=== PATIENT | female | born 1945 | race Caucasian/White ===

== ENCOUNTER 2024-04-21 07:06 | Observation (INO) ==
--- NOTE | 2024-03-20 10:15 | PAT Medication Instructions ---
Medication Instructions Date of Service March 20, 2024 Home Medications ergocalciferol (vitamin D2) 1,250 mcg (50,000 unit) capsule (Vitamin D2) 1,250 mcg PO UD meloxicam 7.5 mg tablet 7.5 mg PO QAM metoprolol succinate 50 mg tablet,extended release 24 hr 50 mg PO QAM ASK your surgeon for instructions meloxicam 7.5 mg tablet 7.5 mg PO QAM DO NOT take the morning of surgery ergocalciferol (vitamin D2) 1,250 mcg (50,000 unit) capsule (Vitamin D2) 1,250 mcg PO UD Take morning of surgery With a small sip of water, OTHERWISE NOTHING TO EAT OR DRINK AFTER MIDNIGHT: metoprolol succinate 50 mg tablet,extended release 24 hr 50 mg PO QAM Other Notes If you have any questions please call us at [phone] or [phone] or [phone] or [phone]
--- NOTE | 2024-03-27 11:16 | Anesthesiology Consultation ---
Date of Service March 27, 2024 Assessment & Plan (1) Encounter for pre-operative examination: - Infectious disease screening: Per assessment on 03/27/24: No known recent infectious disease contacts or current infectious disease symptoms. - Patient acceptable risk for surgery pending surgeon-ordered PCP preop evaluation (Kaleigh BARRIGA, appt 03/24). Chart Review Chart Review: Patient seen in Pre Admission Testing Teaching & Discussion Pre-Anesthesia Teaching/Discussion Notes: Instructed NPO after midnight before surgery,except medications with 15 cc of water. Medication instructions provided according to the PAT guidelines. History Surgery Operation Date: 04/21/24 07:45 Proposed Procedures p L3-L4 Decompression - Lucien Albright, Height/Weight Height: 5 ft 1 in Weight: 55.6 kg Allergies Allergy/AdvReac Type Severity Reaction Status Date / Time Penicillins Allergy Unknown Hives Verified 03/20/24 09:03 Medications Home Medications Medication Instructions Recorded Confirmed Last Taken ergocalciferol (vitamin D2) 1,250 1,250 mcg PO UD 03/20/24 03/20/24 Unknown mcg (50,000 unit) capsule (Vitamin D2) meloxicam 7.5 mg tablet 7.5 mg PO QAM 03/20/24 03/20/24 Unknown metoprolol succinate 50 mg 50 mg PO QAM 03/20/24 03/20/24 Unknown tablet,extended release 24 hr Past Medical History Medical History Arthritis History of high cholesterol [place] (hard of hearing) HTN (hypertension) Spinal stenosis Exercise / Class Metabolic Activity III < 4 Walking/Shop/Light housework (one FS: No CP, mild SOB) Past Surgical History Surgical History History of colonoscopy History of laparoscopy Past Anesthesia History No Hx of Anesthesia Complications and No Family Hx of Anesthesia Complications History of PONV No Hx of PONV and No Hx of Motion Sickness Social History Smoking Status: Never smoker Do You Dip or Chew Tobacco: No Hx Alcohol Use: No Hx Substance Use: No substance use type: does not use Review of Systems Patient denies chest pain, shortness of breath, fever, chills, cough, wheezing. Physical Exam Vital Signs BP 153/78 P 70 TEMP 98.2 SP02 96%RA RESP 16 Physical Full cervical extension range of motion. Full TMJ range of motion. TMD 3 finger breaths Mallampati Score I Dentition: intact, upper front caps Lungs: clear throughout to auscultation Cardiac: regular rate and rhythm, no murmurs noted Spine: normal Carotid arteries: negative bruit Extremities: no LE edema Lab Results Anesthesia Preop Results Results Anesthesia Widget: WBC 6.08 K/ul (4.8-10.8) 03/27/24 Hgb 11.8 g/dl (12.0-16.0) L 03/27/24 Hct 36.1 % (37.0-47.0) L 03/27/24 Plt 259 K/uL (130-400) 03/27/24 Na 137 mmol/L (136-145) 03/27/24 K 4.4 mmol/L (3.5-5.1) 03/27/24 Cl 103 mmol/L (98-107) 03/27/24 CO2 28 mmol/L (21-32) 03/27/24 BUN 19 mg/dl (6-23) 03/27/24 Creat 0.75 mg/dl (0.6-1.2) 03/27/24 Glucose Level 76 mg/dl (70-99(Fasting)) 03/27/24 PT 10.7 Seconds (9.0-12.0) 03/27/24 PTT 25 Seconds (21-31) 03/27/24 INR 1.0 (0.9-1.1) 03/27/24 Urine Color Yellow 03/27/24 Urine Appearance Clear (Clear) 03/27/24 Urine pH 5.0 (4.5-7.5) 03/27/24 Urine Specific Bostic 1.015 (1.000-1.030) 03/27/24 Urine Protein Negative (Negative) 03/27/24 Urine Glucose (UA) Negative (Negative) 03/27/24 Urine Ketones Negative (Negative) 03/27/24 Urine Blood Negative (Negative) 03/27/24 Urine Nitrite Negative (Negative) 03/27/24 Urine Bilirubin Negative (Negative) 03/27/24 Urine Urobilinogen Negative (Negative) 03/27/24 Urine Leukocyte Esterase 1+ (Negative) H 03/27/24 Urine WBC (Auto) 6-10 /hpf (0-5) H 03/27/24 Urine RBC (Auto) 0-2 /hpf (0-2) 03/27/24 Urine Hyaline Casts (Auto) 0-2 /lpf (0-2) 03/27/24 Urine Epithelial Cells (Auto) 0-2 /hpf (0-2) 03/27/24 Urine Bacteria (Auto) None Seen (None Seen) 03/27/24 Blood Type A Negative 03/27/24 Antibody Screen NEGATIVE 03/27/24 Testing Electrocardiogram Date: 03/27/24 NSR at 69bpm. "Normal ECG" Chest X-Ray Date: 03/27/24 FINDINGS: No lines and tubes are seen. Calcified aortic knob is seen. The lungs are clear. No evidence of pleural effusion or pneumothorax. IMPRESSION: No acute chest disease.
[2024-04-21] MEDS ORDERED: ePHEDrine sulfate 50 MG/ML AMP IV PRN (08:09)
[2024-04-21] MEDS ORDERED: PROMETHAZINE HCL 6.25 MG in SODIUM CHLORIDE 0.9% 50 ML IV PRN (08:09)
[2024-04-21] MEDS ORDERED: HYDROmorphone INJ 1 MG/ML SYRINGE IV PRN ×2 (08:09→11:40)
[2024-04-21] MEDS ORDERED: ATROPINE SULFATE 0.1 MG/ML 10ML SYR IV PRN (08:09)
[2024-04-21] MEDS ORDERED: HYDROmorphone INJ 2 MG/ML SYR/VIAL ONE (08:12)
[2024-04-21] MEDS ORDERED: MIDAZOLAM HCL 1 MG/ML 2ML VIAL ONE (08:12)
[2024-04-21] MEDS ORDERED: SODIUM CHLORIDE 0.9% PF INJ 10 ML VIAL ONE (08:13)
[2024-04-21] MEDS ORDERED: PROPOFOL IV EMULSION 10 MG/ML 20 ML VIAL IV ONE (08:13)
[2024-04-21] MEDS ORDERED: ROCURONIUM BROMIDE 10 MG/ML 5 ML VIAL IV ONE ×6 (08:13→09:47)
[2024-04-21] MEDS ORDERED: GLYCOPYRROLATE 0.2 MG/ML VIAL ONE (08:13)
[2024-04-21] MEDS ORDERED: DEXAMETHASONE SOD INJ 4 MG/ML VIAL ONE (08:13)
[2024-04-21] MEDS ORDERED: ONDANSETRON INJ 2 MG/ML 2 ML VIAL ONE (08:13)
[2024-04-21] MEDS ORDERED: LIDOCAINE 2% 2 ML VIAL/AMP(20MG/ML) INFIL ONE (08:13)
[2024-04-21] MEDS: VANCOMYCIN HCL 1,000 MG/270 ML BAG IV SCH (08:18)
[2024-04-21] MEDS: GABAPENTIN 300 MG CAP PO SCH (08:19)
[2024-04-21] MEDS: LR 15ML/HR IV SCH (08:19)
[2024-04-21] MEDS: ACETAMINOPHEN 500 MG TAB PO SCH (08:19)
[2024-04-21] MEDS: CeleBREX 200 MG CAP PO SCH (08:20)
[2024-04-21] MEDS ORDERED: SUGAMMADEX SODIUM 200 MG/2 ML VIAL IV ONE (08:30)
--- NOTE | 2024-04-21 08:39 | History & Physical Bridge Note ---
Date of Service April 21, 2024 History & Physical Bridge Note I have examined the patient, reviewed the History & Physical and in the interval since the performance of the History & Physical I have noted the following changes of clinical significance: no changes noted
--- NOTE | 2024-04-21 08:39 | History & Physical Report ---
Date of Service April 21, 2024 Assessment & Plan (1) Neurogenic claudication due to lumbar spinal stenosis: Plan: L3-L4 decompression History of Present Illness Chief Complaint: Back and bilateral leg pain Primary Care Provider: LINUS Beckett This is an 79-year-old female who presents with chronic persistent back and leg pain and failing course of nonoperative care is here for surgical invention. Allergies Allergy/AdvReac Type Severity Reaction Status Date / Time Penicillins Allergy Unknown Hives Verified 03/20/24 09:03 Home Medications Medication Instructions Recorded Confirmed Type ergocalciferol (vitamin D2) 1,250 1,250 mcg PO UD 03/20/24 04/21/24 History mcg (50,000 unit) capsule (Vitamin D2) meloxicam 7.5 mg tablet 7.5 mg PO QAM 03/20/24 04/21/24 History metoprolol succinate 50 mg 50 mg PO QAM 03/20/24 04/21/24 History tablet,extended release 24 hr Past Med/Surg History Problem List (Updated 04/21/24 @ 08:38 by Lucien Albright DO) Neurogenic claudication due to lumbar spinal stenosis Encounter for pre-operative examination Medical History Arthritis History of high cholesterol [place] (hard of hearing) HTN (hypertension) Spinal stenosis Surgical History History of colonoscopy History of laparoscopy Social History Smoking Status: Never smoker Do You Dip or Chew Tobacco: No; Hx Alcohol Use: No Hx Substance Use: No Preferred Language: Iraqi Communication Ability: Effective Siding Applicator Required: No Beliefs That Will Affect Care: Adventism Adventism Beliefs: Rastafari Current Living Situation: Spouse and Family Current Living Situation Comment: son is with us Feels Safe at Home: Yes Assistive Devices: Cane, Glasses, Hearing Aid - Bilateral and Walker Physical Exam Physical Exam: Patient is alert and oriented heart regular in rhythm Lungs clear Results & Data Results & Data Vital Signs (Past 12 Hours) Vital Signs Temp Pulse Resp BP Pulse Ox O2 Del Method 04/21/24 07:35 36.6 C 71 20 180/93 H 100 Room Air
[2024-04-21] MEDS: LR 60ML/HR IV SCH (09:03)
[2024-04-21] MEDS ORDERED: ePHEDrine sulfate 50 MG/5 ML SYR ONE (09:25)
[2024-04-21] MEDS: BUPIVACAINE/EPINEPHRINE 0.25% 1:200,000 30 ML VIAL ONE (09:50)
[2024-04-21] MEDS: ceFAZolin 330 MG/ML 1 GM VIAL ONE (09:54)
--- NOTE | 2024-04-21 10:12 | Operative Report ---
Post Operative Report Pre & Post Diagnosis Operation Date: 04/21/24 09:05 Pre-Op Diagnosis: Neurogenic claudication due to lumbar spinal stenosis. Post-Op Diagnosis: Neurogenic claudication due to lumbar spinal stenosis. I identified the patient and participated in the time-out.: Yes Procedure Operation Date: 04/21/24 09:05 Actual Procedures #1 lumbar decompression bilateral medial facetectomies L3-L4. #2 excision of extradural mass L3-L4. #3 posterior spinal fusion L3-L4. #4 placement infuse collagen sponge combined with Koros in the posterior lateral gutters L3-L4. #5 application of versa wrap over the exposed dura. Surgeon Lucien Albright, Sba Underwriter Gisel Sanchez Estimated Blood Loss 50 Findings Consistent with Post-Op Diagnosis Specimens None Indications This is an 7-year-old female who presents with chronic persistent back and bilateral leg pain and failing course of nonoperative care is here for surgical invention. Description of Procedure Patient was met with identified informed consent obtained. Patient was then taken to the operative suite underwent intubation placed in the prone position on the Perry table on top of the Baltazar frame. All bony prominences well- padded eyes inspected to ensure no external pressure placed upon them. This point lumbar spine was prepped and draped in the normal sterile fashion. The assistance of fluoroscopy identified the L3-L4 disc space and sharp dissection with the assistance of Bovie cautery from down to and exposing the lamina of L3- L4. Then performed a midline decompression with removal of L4 lamina. I excised the facet cyst of L3-L4 with direct adherence to the associated dura. Then performed bilateral medial facetectomies to address all subarticular disease. In light of the extent of the decompression I did elect to perform a in situ posterior lateral fusion L3-L4. I extended the dissection to the transverse processes of L3-L4 and burred them to subcortical bleeding bone. Infuse collagen sponge combined with Koros was then placed in the posterior gutters. Versa wrap placed over the exposed dura. 10 round GLEN drain inserted. The incision was then closed with 1 Vicryl the fascia 2-0 Vicryl subcutaneously and 4 Monocryl for final skin closure. Steri-Strips sterile dressing placed. Patient waken taken PACU stable condition. Please note Gisel Sanchez was present at the entire procedure and all the patient positioning complex portion of the surgery and final skin closure. Im ordering 20 grams of Triple [place] Collagen Powder ([id number] [id number]) to treat an incision wound that was caused by a spine procedure. The incision is approximately 2 cm(W) x 4 cm(L) into the joint (D) in size and is a full thickness wound. Triple [place] collagen comes in 1 gram packets so 20 packets were ordered. Given the size of the wound, with light to moderate exudate I chose to order a 20 day supply. The patient will be provided instructions for proper application of the collagen wound kit. The patient will be asked to apply the collagen powder daily and then cover it with sterile dressings dispensed. Collagen was selected as I expect the collagen to attract monocytes and fibroblasts, act as a sacrificial substrate for MMPs, and ultimately proved a matrix for tissue and vessel growth. The collagen will act as a primary dressing in this scenario. It is medically necessary for proper healing of these wounds to improve bioavailability and contact with each wound surface, this is also to help prevent infection of wounds and promote healing ultimately leading to a better healing outcome and limit the risk of infection. I attest to the content of the Intraoperative Record and any orders documented therein. Any exceptions are noted below.
[2024-04-21] MEDS ORDERED: FLUMAZENIL 0.1 MG/1 ML 10 ML VIAL IV ONE (10:20)
[2024-04-21] MEDS ORDERED: NALOXONE HCL 0.4 MG/1 ML VIAL/CARP ONE (10:25)
--- NOTE | 2024-04-21 11:05 | Fluoroscopy Report ---
FL spine 1V any level CLINICAL HISTORY: L3-L4 DECOMPRESSION COMPARISON STUDY: None. FLUOROSCOPY TIME: 7 seconds. Ka,r: 4.20 mGy FLUOROSCOPIC IMAGES: 1 FINDINGS: Single lateral fluoroscopic image demonstrates surgical retractors and a surgical instrumen t directed toward the posterior elements at the L4 level. IMPRESSION: Single lateral fluoroscopic image demonstrating surgical instruments directed toward the posterior elements at the L4 level. ACT 112: Negative or not required by law. Electronically signed by: Norm Gillespie M.D. 04/21/2024 11:04 AM
[2024-04-21] MEDS: FLOSEAL HEMOSTATIC MATRIX 10ML TOP ONE ×2 (11:38→11:39)
[2024-04-21] MEDS ORDERED: LORazepam 2 MG/1 ML VIAL IV PRN (11:40)
[2024-04-21] MEDS ORDERED: NALOXONE HCL 0.4 MG/1 ML VIAL/CARP IV PRN (11:40)
[2024-04-21] MEDS ORDERED: bisacodyL 10 MG SUPP PR PRN (11:40)
[2024-04-21] MEDS ORDERED: DO NOT ADMINISTER FLU VACCINE PRN (11:40)
[2024-04-21] MEDS ORDERED: diphenhydrAMINE Capsule 25 MG CAP PO PRN (11:40)
[2024-04-21] MEDS ORDERED: HYDROmorphone INJ 0.5 MG/0.5 ML SYR IV PRN (11:40)
[2024-04-21] MEDS ORDERED: FAMOTIDINE 20 MG TAB PO PRN (11:40)
[2024-04-21] MEDS ORDERED: DO NOT ADMINISTER PNEUMOCOCCAL VACCINE PRN (11:40)
[2024-04-21] MEDS ORDERED: ALUMINUM/MAGNESIUM SUSP 30 ML UDC PO PRN (11:40)
[2024-04-21] MEDS ORDERED: METOCLOPRAMIDE HCL INJ 5 MG/ML 2 ML VIAL IV PRN (11:40)
[2024-04-21] MEDS ORDERED: PROMETHAZINE 12.5 MG/50.5 ML BAG IV PRN (11:40)
[2024-04-21] MEDS ORDERED: LORazepam 0.5 MG TAB PO PRN (11:40)
[2024-04-21] MEDS ORDERED: hydrOXYzine HCl 25 MG TAB PO PRN (11:40)
[2024-04-21] MEDS ORDERED: ONDANSETRON 4 MG OD TAB PO PRN (11:40)
[2024-04-21] MEDS ORDERED: MAGNESIUM HYDROXIDE SUSP 30 ML UDC PO PRN (11:40)
[2024-04-21] MEDS ORDERED: SOD PHOSPHATE/SOD BIPHOSPHATE ENEMA 132 ML BTL PR PRN (11:40)
--- NOTE | 2024-04-21 12:17 | Hospitalist Consultation ---
Date of Consultation April 21, 2024 Assessment & Plan (1) Status post lumbar spine surgery for decompression of spinal cord: S/p L3-L4 lumbar spine decompression with Dr. Albright on 04/21 Perioperative antibiotics, pain control, fluid management, and DVT PPx per the primary team Postop spine x-ray revealed surgical instruments directed toward posterior elements of L4 Patient reports no new complaints postop, and reports that her pain is well- managed at time of consult Agree with a.m. CBC, BMP; we will follow (2) HTN (hypertension): Agree with restarting metoprolol succinate on the morning of 04/22; okay to continue beta-blockers perioperatively pending AM BP (3) Arthritis: Okay to hold meloxicam perioperatively Plan Agree with current medical management. Disposition: MedSurg Clear liquid diet for now and advance as tolerated VTE PPx: SCD/teds Thank you for allowing us to precipitate in the care of this patient, please reach out with any questions or concerns; we will continue to follow. Supervising Physician Co-Signing Physician Notes I personally saw and examined the patient. I independently reviewed the labs, imaging, problem list, medication list, past medical history and family history. I verified all campos points and agree with Mina Martinez PA-C with the following exceptions and/or additions: 79 year old female POD#0 lumbar spinal decompression. No acute concerns or questions from the patient. O/E HS RRR, no murmurs, Chest CTAB, Abdo SNT A/P s/p lumbar spinal surgery - VTE / pain / bowel management per primary ortho spine team HTN - continue metoprolol succinate History of Present Illness Reason for Consultation: Medical management Requesting Physician: Lucien Albright DO Attending Physician: Lucien Albright DO History of Present Illness Lidia is a pleasant 79-year-old female with PMH of neurogenic claudication due to lumbar spinal stenosis. She presented on 04/21 for an L3-L4 decompression with Dr. Lucien Albright. Per review of operative report, EBL was listed as 50 cc, and findings were consistent with postop diagnosis. Per review of patient's vitals postop, vitals been stable. At time of consult, patient reports no new complaints. She reports the pain in her lower back is 0/10 at present. No numbness or tingling going down the legs. No saddle anesthesia. She reports that she is tired from her procedure, but overall well. She reports she has been drinking well since the procedure, but has not tried eating yet. She denies using supplemental oxygen at baseline or CPAP at night. She has not been up yet to use the bathroom since her procedure. She does report that she is able to sit up in the bed without pain in her lower back. She denies smoking, tobacco use, recent alcohol use. Patient did not take her regular morning medicines today (which is just metoprolol and meloxicam). Patient's vitals are stable at time of consult. ROS: Patient endorses fatigue. Patient denies fever, chills, night sweats, dizziness/lightheadedness, chest pain, pleuritic CP, SOB, cough, abdominal pain, N/V, lower back pain, saddle anesthesia, or numbness or tingling in the legs. Allergies Allergy/AdvReac Type Severity Reaction Status Date / Time Penicillins Allergy Unknown Hives Verified 03/20/24 09:03 Home Medications Medication Instructions Recorded Confirmed Type ergocalciferol (vitamin D2) 1,250 1,250 mcg PO UD 03/20/24 04/21/24 History mcg (50,000 unit) capsule (Vitamin D2) meloxicam 7.5 mg tablet 7.5 mg PO QAM 03/20/24 04/21/24 History metoprolol succinate 50 mg 50 mg PO QAM 03/20/24 04/21/24 History tablet,extended release 24 hr oxycodone 5 mg tablet 5 mg PO Q6H PRN pain #30 tabs 04/22/24 Rx tramadol 50 mg tablet 50 mg PO Q6H PRN pain, moderate 04/22/24 Rx #30 tabs Patient History Medical History Arthritis History of high cholesterol [place] (hard of hearing) HTN (hypertension) Spinal stenosis Surgical History History of colonoscopy History of laparoscopy Social History Smoking Status: Never smoker Do You Dip or Chew Tobacco: No; Hx Alcohol Use: No Hx Substance Use: No Preferred Language: Italian Communication Ability: Effective Business Manager Required: No Beliefs That Will Affect Care: Hindu Hindu Beliefs: Latter-Day Current Living Situation: Spouse and Family Current Living Situation Comment: son is with us Feels Safe at Home: Yes Assistive Devices: Cane, Glasses, Hearing Aid - Bilateral and Walker Review of Systems Review of Systems: See HPI above Physical Exam Physical Exam: General: no acute distress; lethargic; pleasant affect; patient's (Earl) at bedside; patient is non-toxic appearing; cooperative; SpO2 95% on RA HEENT: normocephalic, atraumatic; no scleral icterus; PERRLA; vision and hearing intact Neck: supple; trachea midline Skin: warm, dry without signs of tenting; no cyanosis; no rashes, bruising, lesions, or erythema noted CV: chest wall NTP; RRR; S1/S2 normal; no murmurs/rubs/gallops; pulses intact and symmetric at radial, DP, and PT Lungs: no acute respiratory distress; symmetrical chest wall expansion; clear br eath sounds across all lung beltran w/o adventitious sounds; no wheezing ABD: Soft, NTP; BS present; no rebound/guarding; no distention Back: Upper spine NTP; lower spine surgical site dressing without signs of drainage or infection; NTP around the surgical site MSK: no tics or fasciculations; no edema noted in the LEs b/l, nonerythematous; patient demonstrates ability to wiggle toes/plantarflex/dorsiflex bilaterally, and lift legs from the bed with 5/5 strength; pulses are intact at DP/PT Neuro: A&Ox3; normal mood and affect; fluent speech; no focal deficits; sensation intact and symmetric in the lower extremities bilaterally assessed via light touch Results & Data Results & Data Vital Signs (Past 12 Hours) Vital Signs Temp Pulse Pulse Resp BP Pulse Ox O2 Del Method 04/21/24 11:46 36.3 C L 68 16 114/70 95 Room Air 04/21/24 11:35 64 14 122/62 98 Nasal Cannula 04/21/24 11:25 64 17 120/65 97 Nasal Cannula 04/21/24 11:15 66 19 118/62 98 Nasal Cannula 04/21/24 11:05 36.4 C L 66 13 122/63 96 Room Air 04/21/24 10:55 67 14 131/72 99 Oxymask 04/21/24 10:45 70 16 120/68 99 Oxymask 04/21/24 10:36 36.3 C L 70 15 116/81 99 Oxymask 04/21/24 07:35 36.6 C 71 20 180/93 H 100 Room Air O2 Flow Rate 04/21/24 11:46 04/21/24 11:35 2 04/21/24 11:25 2 04/21/24 11:15 2 04/21/24 11:05 04/21/24 10:55 3 04/21/24 10:45 9 04/21/24 10:36 9 04/21/24 07:35 Diagnostic Findings Spine X-Ray 04/21/24 09:05 FL spine 1V any level CLINICAL HISTORY: L3-L4 DECOMPRESSION COMPARISON STUDY: None. FLUOROSCOPY TIME: 7 seconds. Ka,r: 4.20 mGy FLUOROSCOPIC IMAGES: 1 FINDINGS: Single lateral fluoroscopic image demonstrates surgical retractors and a surgical instrument directed toward the posterior elements at the L4 level. IMPRESSION: Single lateral fluoroscopic image demonstrating surgical instruments directed toward the posterior elements at the L4 level. ACT 112: Negative or not required by law. Electronically signed by: Norm Gillespie M.D. 04/21/2024 11:04 AM PG Care Time/CCT Total # of Minutes Spent Total Time Spent with Patient: Total time spent is greater than 50% in coordination of care (as documented) at patient's floor/unit and/or counseling patient: Coding [place] [address] IN/OBS CONSULT LVL 3,45M Patient Type Established Medical Decision Making Low Complexity Diagnoses Status post lumbar spine surgery for decompression of spinal cord Z98.890 HTN (hypertension) I10 Arthritis M19.90
[2024-04-21] MEDS: LACTATED RINGER'S 1,000 ML IV SCH (12:55)
--- NOTE | 2024-04-21 14:35 | Anesthesiology Progress Note ---
Date of Service April 21, 2024 Anesthesia Post Procedure Vital Signs Vital Signs: Temp Pulse Pulse Resp BP Pulse Ox O2 Del Method 04/21/24 13:42 36.2 C L 64 16 106/66 98 Nasal Cannula 04/21/24 12:52 36.3 C L 68 16 111/68 93 Room Air 04/21/24 12:21 65 16 110/66 95 Room Air 04/21/24 11:46 36.3 C L 68 16 114/70 95 Room Air 04/21/24 11:35 64 14 122/62 98 Nasal Cannula 04/21/24 11:25 64 17 120/65 97 Nasal Cannula 04/21/24 11:15 66 19 118/62 98 Nasal Cannula 04/21/24 11:05 36.4 C L 66 13 122/63 96 Room Air 04/21/24 10:55 67 14 131/72 99 Oxymask 04/21/24 10:45 70 16 120/68 99 Oxymask 04/21/24 10:36 36.3 C L 70 15 116/81 99 Oxymask 04/21/24 07:35 36.6 C 71 20 180/93 H 100 Room Air O2 Flow Rate 04/21/24 13:42 2 04/21/24 12:52 04/21/24 12:21 04/21/24 11:46 04/21/24 11:35 2 04/21/24 11:25 2 04/21/24 11:15 2 04/21/24 11:05 04/21/24 10:55 3 04/21/24 10:45 9 04/21/24 10:36 9 04/21/24 07:35 Transfer of Care Handoff Completed per policy Notes Mental Status: alert / awake / arousable and participated in evaluation Nausea / Vomiting: adequately controlled Pain: adequately controlled Airway Patency, RR, SpO2: stable & adequate BP & HR: stable & adequate Hydration State: stable & adequate Anesthetic Complications: no major complications apparent and Pt Satisfied with anesthetic care
[2024-04-21] MEDS: oxyCODONE HCL IR 5 MG TAB (IMMEDIATE RELEASE) PO PRN (14:54)
[2024-04-21] MEDS: CLINDAMYCIN/D5W 600 MG/50 ML BAG IV SCH (16:05)
[2024-04-21] MEDS: ONDANSETRON INJ 2 MG/ML 2 ML VIAL IV PRN (17:09)
[2024-04-21] MEDS: ACETAMINOPHEN 1,000 MG/100 ML VIAL IV PRN (17:25)
[2024-04-21] MEDS: DOCUSATE SODIUM/SENNA 50/8.6MG TAB PO SCH (20:20)
[2024-04-22] MEDS: POLYETHYLENE (MIRALAX) 17 GM PACK PO SCH (05:56)
[2024-04-22 06:28] LABS: Basophils # (auto) 0.02 K/uL (0.00-0.20); Basophils % (auto) 0.2 %; Eosinophils # (auto) 0.02 K/uL (0.00-0.50); Eosinophils % (auto) 0.2 %; Hematocrit (blood only) 32.1 % (37.0-47.0); Hemoglobin 10.6 g/dl (12.0-16.0); Immature Granulocytes # (auto) 0.05 K/uL (0.01-0.20); Immature Granulocytes % (auto) 0.5 %; Lymphocytes # (auto) 1.51 K/uL (1.20-3.40); Lymphocytes % (auto) 14.4 %; Mean Corpuscular Hemoglobin 30.9 pg (25.0-34.0); Mean Corpuscular Volume 93.6 fL (80.0-100.0); Mean Platelet Volume 11.4 fL (9.4-12.4); Monocytes # (auto) 0.81 K/uL (0.11-0.59); Monocytes % (auto) 7.7 %; Neutrophils # (auto) 8.07 K/uL (1.40-6.50); Platelet Count 218 K/uL (130-400); RDW Coefficient of Variation 13.2 % (11.5-14.5); Red Blood Count 3.43 M/uL (4.20-5.40); White Blood Count 10.48 K/ul (4.8-10.8)
[2024-04-22 07:03] LABS: BUN Creatinine Ratio 21.3 (10-20); Calcium 9.1 mg/dl (8.6-10.3); Creatinine Clr Calc Pharmacy 42.3 ml/min; Potassium 4.8 mmol/L (3.5-5.1)
[2024-04-22] MEDS: dexAMETHasone 6 MG in SYRINGE 0 ML IV SCH (07:33)
--- NOTE | 2024-04-22 08:41 | Orthopedic Progress Note ---
Date of Service April 22, 2024 Assessment & Plan (1) Neurogenic claudication due to lumbar spinal stenosis: Plan: Today we will initiate physical therapy. The braces for when she is out of bed and ambulating. Monitor GLEN output anticipate discharge home tomorrow. Admission and Anticipated Discharge Date Admission Date: April 21, 2024 Subjective Patient's back pain is controlled leg symptoms improved Physical Exam Physical Exam: Patient is currently seen in the bed. She is comfortable. Good strength testing. Results & Data Vital Signs (Past 12 Hours) Vital Signs Temp Pulse Resp BP Pulse Ox O2 Del Method 04/22/24 06:30 36.7 C 64 16 103/61 94 Room Air 04/22/24 03:08 36.5 C 71 16 101/59 L 95 Room Air 04/21/24 22:52 36.4 C L 66 16 105/62 96 Room Air
[2024-04-22] MEDS: METOPROLOL SUCC 50MG EXT REL TAB PO SCH (09:58)
--- NOTE | 2024-04-22 10:57 | Hospitalist Progress Note ---
Date of Service April 22, 2024 Assessment & Plan (1) Status post lumbar spine surgery for decompression of spinal cord: Plan: S/p L3-L4 lumbar spine decompression with Dr. Albright on 04/21 Perioperative antibiotics, pain control, fluid management, and DVT PPx per the primary team Postop spine x-ray revealed surgical instruments directed toward posterior elements of L4 Patient reports no new complaints postop, and reports that her pain is well- managed at this time Acute blood loss anemia secondary to surgery. Hgb stable at 10.6. No signs of active bleeding or indication for blood transfusion at this time (2) HTN (hypertension): Plan: Resume metoprolol succinate Blood pressure and heart rate well-controlled (3) Arthritis: Plan: Okay to hold meloxicam perioperatively Plan Patient is medically stable for discharge from hospital medicine's perspective. We will sign off at this time. Please reach out with any questions or concerns. Thank you for allowing us to precipitate in the care of this patient. VTE PPx: SCD/teds CODE STATUS: Full code Admission and Anticipated Discharge Date Admission Date: April 21, 2024 Supervising Physician Co-Signing Physician Notes Attending Attestation - Chart reviewed, care plan d/w SARIAH Barajas. I agree w/ the campos components of her documentation. All chronic medical problems are stable at this time. Mild hyponatremia on labs today - this is new (Na level was 137 on pre-op labs). Repeat BMP am for stability. Roman Rodríguez MD Subjective Patient seen and evaluated in bedside chair. She reports feeling very well today. Her pain is well-controlled. She reports her symptoms prior to surgery are now resolved, including paresthesias down her right leg. She has been urinating without difficulty, though has not yet passed gas or had a bowel movement. She has been well tolerating a regular diet. She worked with PT earlier, and states she did well walking the halls. No additional complaints or concerns at this time. Patient is medically stable for discharge from hospital medicine's perspective. We will sign off at this time. Physical Exam Physical Exam: General: No acute distress, nondiaphoretic, well-developed, well-nourished. Cardiac: Regular rate and rhythm without murmurs gallops or rubs. Pulm: Clear to auscultation bilaterally without wheezes, rales or rhonchi. No respiratory distress. 94% on room air. Abdominal: Soft, nontender, nondistended. Hypoactive bowel sounds present. Neuro: A&O x3. No focal neurological deficits. Back: Lumbar spine surgical site dressing without signs of drainage. Nontender to palpation around surgical site. Extremities: Strength 5/5 in lower extremities bilaterally. Able to wiggle toes/plantarflex/dorsiflex bilaterally. Sensation intact and symmetric in lower extremities bilaterally. Cap refill <3. No edema noted. Results & Data Results & Data Vital Signs (Past 12 Hours) Vital Signs Temp Pulse Resp BP Pulse Ox O2 Del Method 04/22/24 09:58 67 126/72 04/22/24 06:30 98.1 F 64 16 103/61 94 Room Air 04/22/24 03:08 97.7 F 71 16 101/59 L 95 Room Air Laboratory Results Reviewed CBC Reviewed BMP PG Care Time/CCT Total # of Minutes Spent Total Time Spent with Patient: Total time spent is greater than 50% in coordination of care (as documented) at patient's floor/unit and/or counseling patient: Coding Level of Care Code 54269 SUB INP/OBS CARE 2/35MIN Diagnoses Status post lumbar spine surgery for decompression of spinal cord Z98.890 HTN (hypertension) I10 Arthritis M19.90
[2024-04-22 16:16] VITALS: O2SAT 96
[2024-04-22] MEDS: ACETAMINOPHEN 500 MG TAB PO PRN (16:20)
[2024-04-22] MEDS: traMADol HCL 50 MG TABLET PO PRN (20:09)
[2024-04-22 20:36] VITALS: BP 137/72; RESP 16; TEMP 97.9
--- NOTE | 2024-04-23 06:38 | Communication Note ---
Date of Service: April 23, 2024 Code chacha was called at approximately 06:10. Nursing staff reports that patient was found having fallen in the bathroom, etiology of fall unknown- pat ient seated on rear end facing toilet per nursing. Patient was hypotensive initially, at time of entering room patient appeared pale but laying supine in bed. 1L NSS bolus ordered. Stat labs ordered, CBC, CMP, mag, trop. Patient unsure if she hit her head, stat CT head wo contrast, c-spine, CXR ordered. Patient is POD #2 from lumbar spine decompression, nursing to contact Dr. Albright and update him on fall. Patient was previously seen with hospitalist consultation but hospitalist was signed off. Transfer orders placed for PCU. Resident Activity Tracking Resident Involvement: Resident Care Provided Care Provided: Adult Hospital Medicine
[2024-04-23 06:50] LABS: Albumin Globulin Ratio 1.5 (0.9-2); Albumin Level 4.1 gm/dl (3.4-5.0); BUN Creatinine Ratio 23.2 (10-20); Bilirubin,Total 0.5 mg/dl (0.2-1.0); Calcium 9.6 mg/dl (8.6-10.3); Creatinine Clr Calc Pharmacy 41.3 ml/min; Globulin 2.7 gm/dl (2.5-4.0); Magnesium 1.8 mg/dl (1.7-2.4); Potassium 4.5 mmol/L (3.5-5.1); Total Protein 6.8 gm/dl (6.0-8.3)
[2024-04-23 06:56] LABS: Basophils # (auto) 0.03 K/uL (0.00-0.20); Basophils % (auto) 0.2 %; Eosinophils # (auto) 0.11 K/uL (0.00-0.50); Eosinophils % (auto) 0.8 %; Hematocrit (blood only) 33.7 % (37.0-47.0); Hemoglobin 11.2 g/dl (12.0-16.0); Immature Granulocytes # (auto) 0.04 K/uL (0.01-0.20); Immature Granulocytes % (auto) 0.3 %; Lymphocytes # (auto) 4.07 K/uL (1.20-3.40); Mean Corpuscular Hemoglobin 30.3 pg (25.0-34.0); Mean Corpuscular Hgb Conc 33.2 g/dL (32.0-36.0); Mean Corpuscular Volume 91.1 fL (80.0-100.0); Mean Platelet Volume 11.7 fL (9.4-12.4); Monocytes # (auto) 1.27 K/uL (0.11-0.59); Monocytes % (auto) 9.7 %; Neutrophils # (auto) 7.59 K/uL (1.40-6.50); Platelet Count 291 K/uL (130-400); RDW Coefficient of Variation 13.3 % (11.5-14.5); RDW Standard Deviation 44.6 fL (36.4-46.3); White Blood Count 13.11 K/ul (4.8-10.8)
[2024-04-23 07:04] LABS: Troponin I High Sensitivity 4.9 pg/ml (0-14)
--- NOTE | 2024-04-23 07:33 | CT Scan Report ---
CT head/brain wo con CLINICAL HISTORY: fall Technique: Contiguous axial CT images of the head were acquired from the base of the skull to the zachery yana without intravenous contrast administration. Images were viewed in brain, subdural and bone [facility]. Automated dose lowering techniques and/or adjustment according to patient size were utilized for this exam. Comparison: None available at the time of this dictation. Findings: Areas of decreased attenuation are present in the periventricular and subcortical white matter bilate rally consistent with small vessel ischemic disease. Generalized cerebral atrophy with commensurate e nlargement of the ventricles, sulci, and cisterns is also present. There is no acute intracranial hem orrhage or evidence of acute territorial infarction. No shift of the midline structures, mass effect, or extra-axial abnormalities are shown. Atherosclerotic calcifications are present in the intracran ial segments of the internal carotid arteries. Imaged portions of the paranasal sinuses and mastoid air cells are clear. The orbits appear normal. There are no acute fractures of the calvaria or scalp swelling. Impression: No acute intracranial hemorrhage, no evidence of acute territorial infarction or other acute intracra nial disease process. ACT 112: Negative or not required by law. Electronically signed by: Bob Mckeon M.D. 04/23/2024 7:31 AM
--- NOTE | 2024-04-23 07:42 | CT Scan Report ---
Exam(s): CT C SPINE EXAM: CT Cervical Spine Without Intravenous Contrast CLINICAL HISTORY: Reason for exam: fall. TECHNIQUE: Axial computed tomography images of the cervical spine without intravenous contrast. CTDI is 24.86 mGy and DLP is 432.16 mGy-cm. Automated exposure control was utilized for the study. A dose lowering technique was utilized adhering to the principles of ALARA. COMPARISON: No relevant prior studies available. FINDINGS: Vertebrae: Unremarkable. No acute fracture. Discs/spinal canal/neural foramina: Mild degenerative disc disease changes seen in the cervical spine. No spinal canal stenosis. Soft tissues: Unremarkable. Other findings: The bones are osteopenic. IMPRESSION: No acute fracture Electronically signed by: Mat Gupta MD 04/23/24 07:41 AM
--- NOTE | 2024-04-23 08:21 | Discharge Summary ---
Date of Service April 23, 2024 Admission HPI Per Admitting Provider This is an 79-year-old female who presents with chronic persistent back and leg pain and failing course of nonoperative care is here for surgical invention. Principal Diagnosis Lumbar spinal stenosis with neurogenic claudication Discharge Data Allergies Allergy/AdvReac Type Severity Reaction Status Date / Time Penicillins Allergy Unknown Hives Verified 03/20/24 09:03 Consultations 04/21/24 11:40 Consult Hospitalist Routine Procedures Performed Operation Date: 04/21/24 09:05 Actual Procedures p L3-L4 Decompression - Lucien Albright DO Ordered Studies 04/21/24 09:05 FL spine 1V any level Routine 04/23/24 06:15 CT head/brain wo con Stat 04/23/24 06:24 CT cervical spine wo con Stat Hospital Course (1) Neurogenic claudication due to lumbar spinal stenosis: Patient is feeling much better at this time.. She did pass out while straining on the toilet earlier this morning. She did not at this point she denies any headache numbness or tingling the upper extremities lower extremities or neck p ain. She has good strength testing lower extremities. GLEN drain decreasing appropriately. Subsequently we will discharge home. Discharge orders instructions from the chart for further review. Total Time Total Time Spent Total Time Spent (In Minutes): 20 minutes Discharge Plan Discharge Items Patient Disposition: Home - Self-Care Reason For Visit: Spinal Stenosis Lumbar Region with Neurogenic Ameena Discharge Diagnosis: Lumbar spinal stenosis with neurogenic claudication Activity: As commented below Non-emergency contact: Primary Care Provider Call non-emergency contact if: you have any medication questions Follow-up/Referrals: Kaleigh Younger CRNP [Primary Care Provider] - Diet: Regular Addtl Attending Provider Instructions: ACTIVITY RECOMMENDATIONS: SELF CARE INSTRUCTIONS AFTER THORACIC/LUMBAR FUSIONS 1. You may walk to your tolerance. It is good exercise for your legs and back. Expect some back and intermittent leg aches and pains. 2. You may perform "counter-top" level activities (make a sandwich, juana with a project, etc.). 3. No bending or lifting of more than 10 pounds or back twisting of any nature (roll like a log when turning in bed). 4. You may ride in a car for 20-30 minutes at a time. No driving until after your first visit with your doctor. 5. Frequent changes of position and restricting sitting to 30 minutes at a time will help limit the amount of back spasms and stiffness you may experience. 6. You may discontinue the use of ambulatory aids (cane, crutches, etc.) once your strength and confidence allow. 7. You may client support coordinator the shower and let water strike your incision when you arrive home at least once daily. Do not take a tub bath, sit in a hot tub or go into a swimming pool until after your first recheck in the office. 8. You may resume previous diet. SPECIAL CARE INSTRUCTIONS: VERY IMPORTANT TO READ AND REVIEW A. Your surgical incision has been closed with a cosmetic suture under the skin that will dissolve in about 6 weeks. In 14 days, you can use a pair of clean scissors and cut the suture that is left outside of the skin at the ends of your incision. 1. The small skin tapes can be removed 7 days after surgery if they have not fallen off by that point. 2. You may keep the wound open to air as much as possible to promote healing after post-op day number 5 unless told otherwise by your doctor. 3. If you think the wound looks like it is becoming infected (redness or worsening drainage) and/or you are experiencing fever, chill or worsening back pain and muscle spasms, contact the office so that we may evaluate you as soon as possible. B. Complications are uncommon, but please contact us if you have any signs or symptoms of: 1. wound infection (fever higher than 102.5 degrees F, redness, separation of wound, drainage, or increasing pain from the incision) 2. blood clots in legs (pain, swelling, redness and warmth in legs) 3. urinary tract infection (fever higher than 102.5 degrees F, burning upon urination or increased frequency of urination) 4. nerve problems (inability to walk on your toes or heels, numbness, loss of bowel or bladder control) 5. any other symptoms that concern you C. Please call the office at if you have any concerns or questions about your operation or recovery. D. No smoking! Smoking drastically decreases the chance of a solid fusion. E. Do not take any anti-inflammatory medications (Indocin, Advil, Motrin, Aspirin, Naprosyn, etc.) as these may inhibit the chance of a solid fusion. Tylenol is okay to take for pain. MANAGING PAIN AFTER SPINAL SURGERY 1. Narcotic medication is intended for short-term use and will be provided for surgical pain. Surgical pain usually lasts for a period of 4-6 weeks. Narcotic medication includes Percocet, Vicodin, Darvocet, Tylenol #3 or Lortab. 2. Longer-term pain is more appropriately treated with non-narcotic medication such as Tylenol ES. 3. Muscle spasm is not appropriately treated with narcotics. Muscle relaxers such as Soma, Flexeril or Skelaxin can be used along with Tylenol ES. 4. Remember that we all live with some "aches and pains". This is not unusual or uncommon after an injury or as we get older. a. Back pain is expected and may include muscle spasms for 4 to 6 weeks after surgery. The pain should gradually improve. If the pain worsens for no apparent reason, please contact the office. b. Intermittent leg pain may also be experienced and should not be concerned about unless it worsens for no apparent reason. If so, please contact the office. 5. We will provide appropriate medication within the normal guidelines of their prescribed use. We will also be very cautious and aware of potential abuse and extended duration of patients' medication needs. a. Pain medications are for your comfort and to assist with sleep and rest so that the tissue can heal. They are not provided in order to return to normal activity and should not be used through the day. To do so or worsening pain at night can result from ongoing tissue damage and development of tolerance to the prescribed medicine. 6. Please allow 2-3 days to process refills. Prescriptions will not be mailed but must be picked up at the office. FOLLOW UP VISIT: Keep your scheduled follow-up appointment. Any questions, please call the office at . Pending Studies at Discharge: No Stand-Alone Forms: [employer], Smoking Cessation Medications and DC Order Prescriptions: New tramadol 50 mg tablet 50 mg PO Q6H PRN (Reason: pain, moderate) Qty: 30 0RF oxycodone 5 mg tablet 5 mg PO Q6H PRN (Reason: pain) Qty: 30 0RF Continued metoprolol succinate 50 mg Tablet Extended Release 24 Hr 50 mg PO QAM meloxicam 7.5 mg Tablet 7.5 mg PO QAM ergocalciferol (vitamin D2) [Vitamin D2] 1,250 mcg (50,000 unit) Capsule 1,250 mcg PO UD Patient Comments: once a month, usually the first of the month. Admission Data Admit Date/Time: 04/21/24 10:15 Attending Provider: Lucien Albright Admit Provider: Lucien Albright Primary Care Provider: Kaleigh Younger
[2024-04-23 09:46] VITALS: PULSE 71
--- NOTE | 2024-04-23 09:56 | XRay Report ---
XR chest 1V portable HISTORY: 79 years-old Female fall acute chest trauma status post fall COMPARISON: 03/27/2024 TECHNIQUE: AP view of the chest FINDINGS: Heart size is mildly enlarged. Mild linear retrocardiac left basilar atelectasis versus scarring. No pneumothorax, pleural effusion or pulmonary edema. Bones appear grossly intact. IMPRESSION: No acute process. ACT 112: Negative or not required by law. The above report was generated using voice recognition software. It may contain grammatical, syntax o r spelling errors. Electronically signed by: Dale Handley M.D. 04/23/2024 9:54 AM
--- NOTE | 2024-04-23 10:45 | Hospitalist Progress Note ---
Date of Service April 23, 2024 Assessment & Plan (1) Vasovagal episode: Plan: last pm's event is most c/w vasovagal episode. she was straining to have a bowel movement. had prodromal symptoms prior to the event. did not lose consciousness. fortunately no injury from the event. CT head, CT c-spine negative. EKG - my reading - NSR, no ST changes. Labs today - mild leukocytosis (likely due to steroids). BMP wnl (Na level today normal). BSG not low. neuro exam wnl this am. I do not suspect a neurological event (e.g. stroke). I do not suspect ACS. check orthostatics before d/c to home. if she is orthostatic then plan to reduce meto succ dose by 1/2. (2) Status post lumbar spine surgery for decompression of spinal cord: Plan: POD #2 - s/p L3-L4 lumbar spine decompression with Dr. Albright on 04/21 discharge planning per primary ortho team (3) HTN (hypertension): Plan: Cont metoprolol succinate Check orthostatic BPs now If orthos are + plan to reduce dose of meto succ by 1/2 (4) Hyponatremia: Plan: Na 132 - 04/22/24 today - 136 Plan From medical standpoint ok to d/c home as long as orthostatic BPs are wnl. Admission and Anticipated Discharge Date Admission Date: April 21, 2024 Subjective events of overnight noted patient confirms the following - felt the urge to have a bowel movement went to bathroom was sitting on toilet was straining to have a stool she developed a dizzy feeling/lightheaded feeling then went to the ground she is certain she did NOT lose consciousness denies any chest pain, dyspnea, or palpitations today - NO dizziness or lightheadedness walking without difficulty she denies ANY worsening back or leg pain in the setting of last night's event Review of Systems Review of Systems: CV - no chest pain pulm - no dyspnea GI - no abd pain; +stool (finally went this am after transfer to [facility]) telemetry since admission to [facility] - R Physical Exam Physical Exam: gen - sitting in chair by window, NAD, looks well eyes - PERRL neck - no JVD mouth - MMM heart - RRR, s1 s2, no murmur lungs - CTA b/l abd - soft NT ND BS+ ext - no edema, pulses 2+ b/l neuro - strength 5/5 x 4 exts; no facial droop; speech fluent/clear; sensation intact to light touch x 4 exts psych - a/o x 3 Results & Data Results & Data Vital Signs (Past 12 Hours) Vital Signs Temp Pulse Pulse Resp BP Pulse Ox 04/23/24 09:44 36.6 C 71 16 137/72 96 04/23/24 06:44 67 Laboratory Results 04/23/24 06:16 Sodium 136 Potassium 4.5 Chloride 102 Carbon Dioxide 25 Anion Gap 9 BUN 19 Creatinine 0.82 Est Cr Clr Drug Dosing 41.3 eGFR 72.27 BUN/Creatinine Ratio 23.2 H Glucose 122 H Calcium 9.6 Magnesium 1.8 Total Bilirubin 0.5 AST 19 ALT 10 Alkaline Phosphatase 78 Troponin I High Sens 4.9 Total Protein 6.8 Albumin 4.1 Globulin 2.7 Albumin/Globulin Ratio 1.5 04/23/24 04/22/24 Range/Units 06:09 05:40 WBC 13.11 H 10.48 (4.8-10.8) K/ul RBC 3.70 L 3.43 L (4.20-5.40) M/uL Hgb 11.2 L 10.6 L (12.0-16.0) g/dl Hct 33.7 L 32.1 L (37.0-47.0) % MCV 91.1 93.6 (80.0-100.0) fL MCH 30.3 30.9 (25.0-34.0) pg MCHC 33.2 33.0 (32.0-36.0) g/dL RDW Std Deviation 44.6 45.0 (36.4-46.3) fL RDW Coeff of Riri 13.3 13.2 (11.5-14.5) % Plt Count 291 218 (130-400) K/uL MPV 11.7 11.4 (9.4-12.4) fL Immature Gran % (Auto) 0.3 0.5 % Neut % (Auto) 58.0 77.0 % Lymph % (Auto) 31.0 14.4 % [place] % (Auto) 9.7 7.7 % Eos % (Auto) 0.8 0.2 % Baso % (Auto) 0.2 0.2 % Neut # (Auto) 7.59 H 8.07 H (1.40-6.50) K/uL Lymph # (Auto) 4.07 H 1.51 (1.20-3.40) K/uL [place] # (Auto) 1.27 H 0.81 H (0.11-0.59) K/uL Eos # (Auto) 0.11 0.02 (0.00-0.50) K/uL Baso # (Auto) 0.03 0.02 (0.00-0.20) K/uL Immature Gran # (Auto) 0.04 0.05 (0.01-0.20) K/uL Sodium 132 L (136-145) mmol/L Potassium 4.8 (3.5-5.1) mmol/L Chloride 99 (98-107) mmol/L Carbon Dioxide 26 (21-32) mmol/L Anion Gap 7 (3-11) BUN 17 (6-23) mg/dl Creatinine 0.80 (0.6-1.2) mg/dl Est Cr Clr Drug Dosing 42.3 ml/min eGFR 74.44 BUN/Creatinine Ratio 21.3 H (10-20) Glucose 109 H (70-99(Fasting)) mg/dl POC Glucose (70-99) mg/dl Calcium 9.1 (8.6-10.3) mg/dl Magnesium (1.7-2.4) mg/dl Total Bilirubin (0.2-1.0) mg/dl AST (13-39) U/L ALT (7-52) U/L Alkaline Phosphatase (34-104) U/L Troponin I High Sens (0-14) pg/ml Total Protein (6.0-8.3) gm/dl Albumin (3.4-5.0) gm/dl Globulin (2.5-4.0) gm/dl Albumin/Globulin Ratio (0.9-2) Blood Type A Negative Antibody Screen Diagnostic Findings Spine X-Ray 04/21/24 09:05 FL spine 1V any level CLINICAL HISTORY: L3-L4 DECOMPRESSION COMPARISON STUDY: None. FLUOROSCOPY TIME: 7 seconds. Ka,r: 4.20 mGy FLUOROSCOPIC IMAGES: 1 FINDINGS: Single lateral fluoroscopic image demonstrates surgical retractors and a surgical instrument directed toward the posterior elements at the L4 level. IMPRESSION: Single lateral fluoroscopic image demonstrating surgical instruments directed toward the posterior elements at the L4 level. ACT 112: Negative or not required by law. Electronically signed by: Norm Gillespie M.D. 04/21/2024 11:[address] 04/23/24 06:15 CT head/brain wo con CLINICAL HISTORY: fall Technique: Contiguous axial CT images of the head were acquired from the base of the skull to the vertex without intravenous contrast administration. Images were viewed in brain, subdural and bone windows. Automated dose lowering techniques and/or adjustment according to patient size were utilized for this exam. Comparison: None available at the time of this dictation. Findings: Areas of decreased attenuation are present in the periventricular and subcortical white matter bilaterally consistent with small vessel ischemic disease. Generalized cerebral atrophy with commensurate enlargement of the ventricles, sulci, and cisterns is also present. There is no acute intracranial hemorrhage or evidence of acute territorial infarction. No shift of the midline structures, mass effect, or extra-axial abnormalities are shown. Atherosclerotic calcifications are present in the intracranial segments of the internal carotid arteries. Imaged portions of the paranasal sinuses and mastoid air cells are clear. The orbits appear normal. There are no acute fractures of the calvaria or scalp swelling. Impression: No acute intracranial hemorrhage, no evidence of acute territorial infarction or other acute intracranial disease process. ACT 112: Negative or not required by law. Electronically signed by: Bob Mckeon M.D. 04/23/2024 7:[address] 04/23/24 06:24 Exam(s): CT C SPINE EXAM: CT Cervical Spine Without Intravenous Contrast CLINICAL HISTORY: Reason for exam: fall. TECHNIQUE: Axial computed tomography images of the cervical spine without intravenous contrast. CTDI is 24.86 mGy and DLP is 432.16 mGy-cm. Automated exposure control was utilized for the study. A dose lowering technique was utilized adhering to the principles of ALARA. COMPARISON: No relevant prior studies available. FINDINGS: Vertebrae: Unremarkable. No acute fracture. Discs/spinal canal/neural foramina: Mild degenerative disc disease changes seen in the cervical spine. No spinal canal stenosis. Soft tissues: Unremarkable. Other findings: The bones are osteopenic. IMPRESSION: No acute fracture Electronically signed by: Mat Gupta MD 04/23/24 07:41 AM Chest X-Ray 04/23/24 06:24 XR chest 1V portable HISTORY: 79 years-old Female fall acute chest trauma status post fall COMPARISON: 03/27/2024 TECHNIQUE: AP view of the chest FINDINGS: Heart size is mildly enlarged. Mild linear retrocardiac left basilar atelectasis versus scarring. No pneumothorax, pleural effusion or pulmonary edema. Bones appear grossly intact. IMPRESSION: No acute process. ACT 112: Negative or not required by law. The above report was generated using voice recognition software. It may contain grammatical, syntax or spelling errors. Electronically signed by: Dale Handley M.D. 04/23/2024 9:54 AM PG Care Time/CCT Total # of Minutes Spent Total Time Spent with Patient: Total time spent is greater than 50% in coordination of care (as documented) at patient's floor/unit and/or counseling patient: Coding Level of Care Code 52906 SUB INP/OBS CARE 2/35MIN Diagnoses Vasovagal episode R55 Status post lumbar spine surgery for decompression of spinal cord Z98.890 HTN (hypertension) I10 Hyponatremia E87.1
--- NOTE | 2024-04-24 05:49 | Electrocardiogram Report ---
Test Reason : Blood Pressure : */* mmHG Vent. Rate : 69 BPM Atrial Rate : 69 BPM P-R Int : 128 ms QRS Dur : 92 ms QT Int : 422 ms P-R-T Axes : 54 48 45 degrees QTcB Int : 452 ms Normal sinus rhythm Normal ECG When compared with ECG of 27-Mar-2024 11:44, No significant change was found Confirmed by Jose Miguel Bryson ([id number]) on 04/24/2024 5:49:36 AM Referred By: Lucien Albright Confirmed By: Jose Miguel Bryson
[2024-05-01] MEDS ORDERED: ERGOCALCIFEROL 1250 MCG (50,000 UNITS) CAP PO SCH (09:00)
== END 2024-04-23 11:40 | disposition home or self-care (01) | DRG 451 ==
LOC: ASU 07:06 → 3E 10:15 → INTOOBSV 10:15 → 2S 04-23 06:40
DX: I10 Essential (primary) hypertension; D62 Acute posthemorrhagic anemia; W19.XXXA Unspecified fall, initial encounter; R55 Syncope and collapse; M19.90 Unspecified osteoarthritis, unspecified site; M48.062 Spinal stenosis, lumbar region with neurogenic claudication; I95.9 Hypotension, unspecified; Z88.0 Allergy status to penicillin; Y92.231 Patient bathroom in hospital as the place of occurrence of the external cause; Z79.899 Other long term (current) drug therapy